=== PATIENT | male | born 1990 | race Two or more races ===

== ENCOUNTER 2016-11-05 06:28 | Day surgery (SDC) | payer MEDICAID ==
[2016-11-05] MEDS ORDERED: PROPOFOL 200 MG/20 ML BOTTLE IV ONE (06:29)
[2016-11-05] MEDS ORDERED: ONDANSETRON 4 MG/2 ML VIAL IV ONE (06:29)
[2016-11-05] MEDS ORDERED: CEFAZOLIN 1 G VIAL MC ONE (06:29)
[2016-11-05] MEDS ORDERED: NEOSTIGMINE METHYLSULFATE 10 MG/10 ML VIAL IV ONE (06:29)
[2016-11-05] MEDS ORDERED: GLYCOPYRROLATE 0.2 MG/ML VIAL MC ONE (06:29)
[2016-11-05] MEDS ORDERED: LIDOCAINE HCL 1% 20 ML VIAL MC ONE (06:29)
[2016-11-05] MEDS ORDERED: IV NORMAL SALINE 1000 ML BAG IV ONE (06:29)
[2016-11-05] MEDS ORDERED: SEVOFLURANE 250 ML BOTTLE IH ONE (06:29)
[2016-11-05] MEDS ORDERED: LIDOCAINE HCL 1% 20 ML VIAL ONE (06:49)
[2016-11-05] MEDS ORDERED: BUPIVACAINE/EPI PF 0.25% 30 ML VIAL ONE (06:50)
[2016-11-05] MEDS ORDERED: CEFAZOLIN 50 ML IV ONE (06:50)
[2016-11-05] MEDS ORDERED: MIDAZOLAM HCL 2 MG/2 ML VIAL ONE (07:11)
[2016-11-05] MEDS ORDERED: FENTANYL CITRATE 100 MCG/2 ML AMPUL ONE (07:11)
[2016-11-05] MEDS ORDERED: ROCURONIUM BROMIDE 50 MG/5 ML VIAL ONE (07:11)
[2016-11-05] MEDS ORDERED: HEPARIN SODIUM,PORCINE 1,000 UNITS/ML VIAL ONE (08:55)
[2016-11-05] MEDS ORDERED: HEPARIN SODIUM,PORCINE 10,000 UNITS/10 ML VIAL ONE (08:55)
[2016-11-05] MEDS ORDERED: ONDANSETRON 4 MG/2 ML VIAL ONE (10:47)
== END 2016-11-05 11:49 | disposition home or self-care (01) ==
LOC: DS 06:28
PROVIDERS: ATTEND Surgery
DX: I12.0 Hypertensive chronic kidney disease with stage 5 chronic kidney disease or end stage renal disease (principal); N18.6 End stage renal disease; Z99.2 Dependence on renal dialysis; D64.9 Anemia, unspecified; K86.1 Other chronic pancreatitis; K66.0 Peritoneal adhesions (postprocedural) (postinfection); Z79.899 Other long term (current) drug therapy; G80.9 Cerebral palsy, unspecified; J44.9 Chronic obstructive pulmonary disease, unspecified
CPT/HCPCS: A4663; J0690; J1644; J2250; J2405; J2710; J3010; J3490; J7030

== ENCOUNTER 2017-01-14 07:41 | Inpatient (IN) | payer MEDICAID ==
[~2017-01-14] VITALS: Ht 152.4 cm; Wt 44.5 kg
[2017-01-14 08:36] LABS: BASOPHILS # (AUTO) 0.1 K/uL (0.0-8.0); BASOPHILS % (AUTO) 0.9 % (0.0-2.0); EOSINOPHILS # (AUTO) 0.3 K/uL (0.0-0.7); EOSINOPHILS % (AUTO) 4.8 % (0.0-7.0); HEMATOCRIT 39.2 % (36.7-47.1); HEMOGLOBIN 12.8 g/dL (12.5-16.3); LYMPHOCYTES # (AUTO) 1.2 K/uL (20.0-40.0); MEAN CORPUSCULAR HEMOGLOBIN 30.9 uug (23.8-33.4); MEAN CORPUSCULAR HGB CONC 33 g/dL (32.5-36.3); MONOCYTES # (AUTO) 0.3 K/uL (2.0-10.0); MONOCYTES % (AUTO) 5.6 % (0.0-11.0); NEUTROPHILS % (AUTO) 67.7 % (38.5-71.5); PLATELET COUNT (AUTO) 198 K/uL (152-348); RED BLOOD CELL COUNT(AUTO) 4.13 MIL/uL (4.06-5.63); WHITE BLOOD COUNT (AUTO) 5.9 K/uL (3.6-10.2)
[2017-01-14 08:54] LABS: BILIRUBIN,DIRECT 0.1 mg/dL (0.0-0.2); BILIRUBIN,TOTAL 0.3 mg/dL (0.2-1.0); POTASSIUM 4.9 mmol/L (3.5-5.1); TOTAL PROTEIN, SERUM 8.2 g/dL (6.4-8.2)
[2017-01-14 09:30] VITALS: BP 126/77
[2017-01-14 11:53] VITALS: BP 124/82
[2017-01-14] MEDS ORDERED: ONDANSETRON 4 MG/2 ML VIAL IV PRN (12:15)
[2017-01-14] MEDS ORDERED: Z GUARD REMEDY PASTE 57 GM TUBE TOP PRN (12:15)
[2017-01-14 15:54] VITALS: BP 128/81
[2017-01-14 16:11] LABS: *BILIRUBIN,URIN NEGATIVE (NEGATIVE); *BLOOD, URINE Trace-lysed (NEGATIVE); *CLARITY,URINE CLEAR (CLEAR); *COLOR,URINE YELLOW (YELLOW); *KETONES,URINE NEGATIVE (NEGATIVE); *UROBILINOGEN,URINE 0.2 E.U./dl (NORMAL); LEUKOCYTE ESTERASE ,URINE NEGATIVE (NEGATIVE); NITRITE, URINE NEGATIVE (NEGATIVE); UGLUCOSE NEGATIVE (NEGATIVE)
[2017-01-14 16:14] LABS: *PROTEIN,URINE 3+ (NEGATIVE)
[2017-01-14 16:15] LABS: BACTERIA,URINE NONE SEEN /HPF (NONE SEEN); RBC,URINE 0-3 /HPF (0-3); SQUAMOUS EPITHELIAL CELL,UR NONE SEEN /HPF (NONE SEEN); WBC,URINE 0-3 /HPF (0-3)
--- NOTE | 2017-01-14 19:30 | NUR ---
RECEIVED PATIENT LAYING COMFORTABLY IN BED. NO ACUTE DISTRESS NOTED. HOB ELEVATED FAMILY AT BEDSIDE. PATIENT IS ALERT AND ORIENTED BUT HAS A CHILDLIKE DEMEANOR. 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 NOTED NON FUNCTIONAL LEFT ABDOMEN PD CATH, DRESSING C/D/I. LEFT THIGH SHUNT PATENT AND INTACT. IV ON THE LEFT AC #22 PATENT AND INTACT. NOTED CONTRACTED RIGHT ARM. SAFETY INITIATED. CALL LIGHT WITHIN REACH. WILL CONTINUE TO MONITOR.
[2017-01-14 20:00] VITALS: BP 137/88
--- NOTE | 2017-01-14 20:40 | NUR ---
SPOKE TO MEL ROUTE SPECIALIST SHE WAS FINISHING UP WITH ANOTHER PATIENT, IF SHE WAS TO DIALYZE MY PATIENT IN ROOM 205. ORDER WAS IN PLACE SINCE [address] GU. RN MEL STATED TO CALL [facility] BECAUSE ACCORDING TO HIM, HE SPOKE TO DR. GU AND WAS FINE TO DIALYZE MR. BERNAL TOMORROW. SPOKE TO AYSE AND CONFIRMED WHAT MEL STATED. CHARGE NURSE SERGE SPOKE TO MEL. IN AGREEMENT TO DIALYZE TOMORROW PERHAPS AFTER SX. POTASSIUM IS WNL. FAMILY IS AWARE.
[2017-01-15 04:00] VITALS: BP 120/84
--- NOTE | 2017-01-15 06:14 | NUR ---
PATIENT SLEPT INTERMITTENTLY T/O SHIFT. WALKED IN THE PATEINT ROOM DURING ONE OF MY FREQUENT ROUNDING AND FOUND THE IV DISLODGED. RE-STARTED IV ON THE LEFT FA #20. IVF INFUSING. MAINTAINED NPO AFTER MIDNIGHT. TURNED AND REPOSITIONED Q2H. BM X 1. SAFETY AND COMFORT MEASURES MAINTAINED T/O SHIFT. CALL LIGHT WITHIN REACH. ALL NEEDS MET.
[2017-01-15] MEDS: IV D5 1/2 NS 1000 ML 1,000 ML IV PRN ×2 (06:17→19:29)
[2017-01-15 06:28] LABS: BASOPHILS # (AUTO) 0.1 K/uL (0.0-8.0); BASOPHILS % (AUTO) 0.9 % (0.0-2.0); EOSINOPHILS # (AUTO) 0.3 K/uL (0.0-0.7); EOSINOPHILS % (AUTO) 4.3 % (0.0-7.0); HEMATOCRIT 38.2 % (40-50); HEMOGLOBIN 11.9 G/DL (14.0-18.0); LYMPHOCYTES # (AUTO) 1.1 K/UL (0.8-4.8); LYMPHOCYTES % (AUTO) 18.1 % (20.5-51.5); MEAN CORPUSCULAR HEMOGLOBIN 29.2 UUG (27.0-31.0); MEAN CORPUSCULAR HGB CONC 31 g/dL (32.0-37.0); MEAN CORPUSCULAR VOLUME 93.5 FL (82.0-92.0); MONOCYTES # (AUTO) 0.4 K/UL (0.1-1.30); NEUTROPHILS # (AUTO) 4.2 K/UL (1.8-8.9); NEUTROPHILS % (AUTO) 70.7 % (38.5-71.5); PLATELET COUNT (AUTO) 181 K/UL (150-450); RED BLOOD CELL COUNT(AUTO) 4.09 MIL/UL (4.7-6.1); WHITE BLOOD COUNT (AUTO) 6.1 K/UL (4.0-11.2)
[2017-01-15 06:42] LABS: THYROID STIMULATING HORMONE 2.275 mIU/mL (0.358-3.740)
[2017-01-15 06:47] LABS: MAGNESIUM 2.8 mg/dL (1.8-2.4); POTASSIUM 5.9 mmol/L (3.5-5.1)
[2017-01-15 06:50] LABS: CREATININE 12.5 mg/dL (0.6-1.3)
--- NOTE | 2017-01-15 09:22 | NUR ---
pt seen on rounding. pt vitals stable. no signs of acute distress. pt is npo. iv site intact. will assess pt for complications
--- NOTE | 2017-01-15 14:26 | NUR ---
PT GOING TO SURGERY. NO SIGNS OF ACUTE DISTRESS. PT HAD A BOWEL MOVEMENT.
[2017-01-15] MEDS ORDERED: LIDOCAINE HCL 1% 20 ML VIAL ONE (14:58)
[2017-01-15] MEDS ORDERED: BUPIVACAINE/EPI PF 0.25% 30 ML VIAL ONE (14:59)
[2017-01-15] MEDS ORDERED: ROCURONIUM BROMIDE 50 MG/5 ML VIAL ONE (15:03)
[2017-01-15] MEDS ORDERED: SUCCINYLCHOLINE CHLORIDE 200 MG/10 ML VIAL ONE (15:03)
[2017-01-15] MEDS ORDERED: MIDAZOLAM HCL 2 MG/2 ML VIAL ONE (15:03)
[2017-01-15] MEDS ORDERED: FENTANYL CITRATE 250 MCG/5 ML AMPUL ONE (15:03)
[2017-01-15] MEDS ORDERED: SEVOFLURANE 250 ML BOTTLE ONE (15:48)
--- NOTE | 2017-01-15 16:47 | NUR ---
pt was dialized in the afternoon. Dialysis nurse took out 2 Liters and bp wnl.
[2017-01-15] MEDS ORDERED: ALBUTEROL SULFATE 8 GM HFA.AER.AD ONE (16:51)
[2017-01-15] MEDS ORDERED: ACETAMINOPHEN 325 MG TABLET PO PRN (17:15)
[2017-01-15] MEDS ORDERED: hydrALAZINE HCL 20 MG/1 ML VIAL ONE (17:56)
[2017-01-15] MEDS ORDERED: IPRATROPIUM BROMIDE 0.5 MG/2.5 ML NEBU ONE (18:01)
[2017-01-15] MEDS ORDERED: ALBUTEROL SULFATE 2.5 MG/3 ML NEBU ONE (18:01)
--- NOTE | 2017-01-15 18:01 | NUR ---
PT WAS PLACED ON CPAP FOR A BRIEF MOMENT, THEN EXTUBATED BY DR. ANDRADE AT BEDSIDE. HHN TX GIVEN WITH NO ADVERSE REACTIONS. DOING WELL ON SUPPLEMENTAL OXYGEN, WILL CONTINUE TO MONITOR.
[2017-01-15 18:14] LABS: BASOPHILS % (AUTO) 0.5 % (0.0-2.0); EOSINOPHILS # (AUTO) 0.2 K/uL (0.0-0.7); EOSINOPHILS % (AUTO) 2.7 % (0.0-7.0); HEMATOCRIT 41.1 % (40-50); HEMOGLOBIN 13.1 G/DL (14.0-18.0); LYMPHOCYTES # (AUTO) 1.2 K/UL (0.8-4.8); LYMPHOCYTES % (AUTO) 16.3 % (20.5-51.5); MEAN CORPUSCULAR HEMOGLOBIN 29.7 UUG (27.0-31.0); MEAN CORPUSCULAR HGB CONC 32 g/dL (32.0-37.0); MEAN CORPUSCULAR VOLUME 92.8 FL (82.0-92.0); MONOCYTES # (AUTO) 0.4 K/UL (0.1-1.30); MONOCYTES % (AUTO) 5.3 % (0.0-11.0); NEUTROPHILS # (AUTO) 5.4 K/UL (1.8-8.9); NEUTROPHILS % (AUTO) 75.2 % (38.5-71.5); PLATELET COUNT (AUTO) 177 K/UL (150-450); RED BLOOD CELL COUNT(AUTO) 4.43 MIL/UL (4.7-6.1); WHITE BLOOD COUNT (AUTO) 7.2 K/UL (4.0-11.2)
[2017-01-15 18:21] LABS: BILIRUBIN,TOTAL 0.3 mg/dL (0.2-1.0); POTASSIUM 5.8 mmol/L (3.5-5.1); TOTAL PROTEIN, SERUM 8.4 g/dL (6.4-8.2)
[2017-01-15 18:25] LABS: CREATININE 10.1 mg/dL (0.6-1.3)
[2017-01-15 18:43] LABS: ABG BASE EXCESS -6.3 mmol/L; ABG PCO2 36.7 mmHg (35.0-45.0); ABG PH 7.331 (7.350-7.450); ABG PO2 575.8 mmHg (75.0-100.0); ABG SITE RIGHT BRACHIAL; ABG TOTAL HEMOGLOBIN 13.3 G/dL (13.5-18.0); COHb 0.9 % (0.5-1.5); MetHb 0.3 % (0.0-1.5); O2Hb 98.5 % (94.0-97.0)
--- NOTE | 2017-01-15 18:55 | NUR ---
received report from or nurse. will await new orders.
--- NOTE | 2017-01-15 19:30 | NUR ---
TYLENOL GIVEN FOR PAIN ON THE LEFT ABD, FACIAL GRIMACING IS SEEN AND CHANGES ON THE HR IS NOTED. WILL CONTINUE TO MONITOR.
--- NOTE | 2017-01-15 19:30 | NUR ---
RECEIVED PATIENT LAYING COMFORTABLY IN BED. HOB ELEVATED. PATIENT IS ON SUPPLEMENTAL 02 1L NC. PATIENT IS ALERT BUT HAS A CHILD LIKE KENNA. HE SUFFERS FROM CEREBRAL PALSY. FAMILY IS AT BEDSIDE. TELE IS SINUS TACH @ 109. HE JUST CAME UP FROM SX ON THE LEFT ABD FOR THE REMOVAL OF PD CATH. 3X5 DRESSING, C/D/I. HE C/O OF PAIN AT THE SITE. WILL REVIEW NEW ORDERS AND WILL ADMINISTER MEDS ORDERED. IVF INFUSING ON THE LEFT FA # 20 D5 1/2 NS @ 75 MLS/HR. SAFETY INITIATED. CALL LIGHT WITHIN REACH. WILL CONTINUE TO MONITOR.
[2017-01-15 19:54] VITALS: BP 132/77
--- NOTE | 2017-01-15 22:47 | NUR ---
PATIENT HR GOES UP TO THE 130'S. SINUS TACH. PATIENT C/O PAIN IN THE LEFT ABD. ON SURGICAL SITE. EVIDENCE BY FACIAL GRIMACING, RESTLESSNESS AND VS CHANGES. NOTIFIED NAIDA AVERY TO GET AN ORDER FOR A STRONGER PAIN MED THAN TYLENOL.
--- NOTE | 2017-01-15 22:53 | NUR ---
NAIDA AVERY ORDERED MORPHINE 1 MG IVP. MEDS GIVEN. WILL EVALUATE THE EFFECTIVENESS.
[2017-01-15] MEDS ORDERED: MORPHINE SULFATE 2 MG/1 ML DISP.SYRIN IV PRN (23:00)
[2017-01-16] VITALS: BP 106/68
--- NOTE | 2017-01-16 00:36 | NUR ---
MORPHINE EFFECTIVE. PATIENT IS LAYING COMFORTABLY IN BED. SLEEPING. NO FACIAL GRIMACING. HR IN THE 90'S. NO ACUTE DISTRESS NOTED
[2017-01-16 04:00] VITALS: BP 112/64
--- NOTE | 2017-01-16 06:04 | NUR ---
patient slept intermittently t/o shift. no acute distress noted. patient remains on 02 1l nc. tele sinus rhythm at 90's. c/o of mild pain in the incision site on the left abdominal lateral side. ivf infusing d5 1/2 ns at 75 cc/hr. dressing c/d/i, refuse pain medication. noted sacral redness. picture was not taken because z-guard was applied heavily. will endorse to the am rn. dvt pumps in place. safety and comfort measures maintained t/o shift. all meds given as ordered. all needs met.
[2017-01-16] MEDS ORDERED: MORPHINE SULFATE 4 MG/1 ML DISP.SYRIN IV PRN (07:00)
[2017-01-16 07:43] LABS: BILIRUBIN,TOTAL 0.3 mg/dL (0.2-1.0); POTASSIUM 4.9 mmol/L (3.5-5.1); TOTAL PROTEIN, SERUM 7.1 g/dL (6.4-8.2)
[2017-01-16 08:07] LABS: CREATININE 10.8 mg/dL (0.6-1.3)
[2017-01-16 08:25] LABS: BASOPHILS % (AUTO) 0.6 % (0.0-2.0); EOSINOPHILS # (AUTO) 0.1 K/uL (0.0-0.7); EOSINOPHILS % (AUTO) 1.9 % (0.0-7.0); HEMOGLOBIN 11.4 g/dL (12.5-16.3); LYMPHOCYTES # (AUTO) 1.2 K/uL (20.0-40.0); LYMPHOCYTES % (AUTO) 16.1 % (20.5-51.5); MEAN CORPUSCULAR HEMOGLOBIN 30.9 uug (23.8-33.4); MEAN CORPUSCULAR HGB CONC 33 g/dL (32.5-36.3); MONOCYTES # (AUTO) 0.5 K/uL (2.0-10.0); MONOCYTES % (AUTO) 6.9 % (0.0-11.0); NEUTROPHILS # (AUTO) 5.4 K/uL (1.8-8.9); NEUTROPHILS % (AUTO) 74.5 % (38.5-71.5); PLATELET COUNT (AUTO) 155 K/uL (152-348); WHITE BLOOD COUNT (AUTO) 7.3 K/uL (3.6-10.2)
[2017-01-16 08:36] LABS: HEMATOCRIT 35.1 % (36.7-47.1)
[2017-01-16] MEDS: IV D5 1/2 NS 1000 ML 1,000 ML IV PRN (08:55)
[2017-01-16] MEDS ORDERED: MORPHINE SULFATE 2 MG/1 ML DISP.SYRIN IV PRN (10:15)
[2017-01-16 11:39] VITALS: BP 107/72
--- NOTE | 2017-01-16 15:52 | NUR ---
SALES AND MARKETING SPECIALIST re: Discharge Plan Patient will be discharged today after 5:30 pm. Patient sister and daughter will be pick him up. Patient has all the necessary assistive devices. Patient has dialysis already in place with [facility]. Schedule is for patient to go friday, friday and friday. Awaiting Dr. Chamberlain's call back to clear for discharge post surgery and schedule follow up appointment.
[2017-01-16 16:04] VITALS: BP 117/79
--- NOTE | 2017-01-16 16:35 | NUR ---
pt received at 1030 from nicholas Sanchez. pt seen on rounding. pt vitals stable. no new injuries noted. iv site patent and intact during rounding. pt was recommened to be discharged by dr essie dow. contacted dr guillermo for any orders and recommendations for the patient. awaiting orders.
--- NOTE | 2017-01-16 17:10 | NUR ---
contacted dr guillermo. corporate legal secretary states that pt will follow up in 2 weeks.
--- NOTE | 2017-01-16 18:31 | NUR ---
pt discharged by dr dow and mima at 1830. family given discharge instructions to family along with copies of discharge summary and belongings list. all discharge summary signed by family and belongings list signed by family. family verbalizes understanding. pt family given instructions to follow up with dr guillermo in two weeks. incision site photo taken and placed in chart. no signs of infection. pt vitals stable. no signs of acute distress. assisted family to transfer in car.
== END 2017-01-16 18:38 | disposition home or self-care (01) | DRG 447 ==
LOC: ER 07:41 → MED 09:14 → TELE 01-15 19:29
PROVIDERS: ADMIT Nurse Practitioner Acute Care; ATTEND Nurse Practitioner Acute Care
PROC: 0DN84ZZ Release Small Intestine, Percutaneous Endoscopic Approach (ICD-10-PCS; 2017-01-15)
PROC: 0WPG33Z Removal of Infusion Device from Peritoneal Cavity, Percutaneous Approach (ICD-10-PCS; principal; 2017-01-15 15:23)
PROC: 5A1D70Z Performance of Urinary Filtration, Intermittent, Less than 6 Hours Per Day (ICD-10-PCS; principal; 2017-01-15 15:23)
DX: T85.611A Breakdown (mechanical) of intraperitoneal dialysis catheter, initial encounter (principal); N18.6 End stage renal disease; K86.1 Other chronic pancreatitis; G80.1 Spastic diplegic cerebral palsy; N27.1 Small kidney, bilateral; K66.0 Peritoneal adhesions (postprocedural) (postinfection); Z99.2 Dependence on renal dialysis; Z99.3 Dependence on wheelchair; J44.9 Chronic obstructive pulmonary disease, unspecified; Z83.3 Family history of diabetes mellitus; M62.49 Contracture of muscle, multiple sites; I10 Essential (primary) hypertension; Z87.798 Personal history of other (corrected) congenital malformations; D64.9 Anemia, unspecified; R80.9 Proteinuria, unspecified; G31.84 Mild cognitive impairment of uncertain or unknown etiology
CPT/HCPCS: 36415; 36600; 70030-TC; 71010; 83735; 84100; 84443; 85025; 85730; 86850; 86900; 86901; 87086; 90937; 93005; 94002; 94664; A4663; J0330; J0360; J2250; J2270; J3010; J3490; J3535; J3590